=== PATIENT | female | born 1995 | race Caucasian/White ===

== ENCOUNTER 2021-08-24 08:53 | Emergency (ER) | payer MEDICAID, SELFPAY ==
[2021-08-24 09:44] VITALS: O2SAT 95
--- NOTE | 2021-08-24 09:58 | W.ED.COVID ---
HPI - COVID General: Chief Complaint: COVID symptoms Stated Complaint: PSEUDOSEIZURES/ COVID + Time Seen by Provider: 08/24/21 09:34 History of Present Illness: HPI Narrative: Patient presents today as a COVID-positive patient tested positive yesterday and has anxiety over diagnosis. Patient arrived via ambulance patient says she was not giving medication for her COVID and she felt faint today as she was thinking about her COVID diagnosis and caregiver thought she might of had a pseudoseizure. Patient has history of pseudoseizures. Patient has no complaints except generalized fatigue and muscle aches and a possible fever. complaint: known COVID positive Prior testing date: 08/23/21 COVID 19 common symptoms: positive fever(s), body aches and nausea; negative non-productive cough, productive cough, dyspnea, headache(s), throat pain or nasal congestion COVID 19 other sytmptoms: negative chest pain or confusion Onset (ago): day(s) (1) Severity: mild Treatment prior to arrival: other (IV) COVID Results: No Data to Display Review of Systems Const: Reports: fever(s) and body aches Eyes: Denies: change in vision or blurry vision ENMT: Denies: throat pain or nasal congestion Card: Denies: chest pain or dyspnea on exertion Resp: Denies: dyspnea, productive cough or non-productive cough GI: Reports: nausea Musc: Denies: extremity pain Skin/Breast: Denies: rash Neuro: Reports: other (Patient history of pseudoseizures did not have seizure activity today); Denies: headache(s), weakness in extremities, lack of coordination, difficulty walking, confusion or behavioral changes Psych: Denies: anxiety or depression Chris/Lymph: Denies: easy bruising PFS ED PFSH: Medical History Depression History of reactive attachment disorder Hx of febrile seizure Mild intellectual disability Family History Other CAD (coronary artery disease) Chronic kidney disease (CKD) Diabetes Seizure Social History Smoking and tobacco status: former smoker Alcohol intake: never Physical Exam Narrative: EXAM NARRATIVE: Patient said she had anxiety attack and did not have seizure activity and she remembers all events. Const: COMMON NORMALS: no acute distress, average body habitus, patient oriented x3 and alert (Patient did not appear in any postictal state. Patient not have any seizur) HENMT: COMMON NORMALS: normocephalic HEAD & SCALP: normal to inspection and normocephalic FACE & SINUS: normal facial exam Eye: COMMON NORMALS: conjunctivae normal GENERAL EYE: appearance normal, both eyes and all related structures CONJUNCTIVA: Yes conjunctivae normal Neck/C-Spine: COMMON NORMALS: no JVD Chest: COMMONS NORMALS: normal inspection of the chest Resp: COMMON NORMALS: normal respiratory effort and clear to auscultation bilaterally AUSCULTATION: clear to auscultation bilaterally Cardio: COMMON NORMALS: no JVD, regular rate and regular rhythm RATE: regular rate RHYTHM: regular rhythm GI: COMMON NORMALS: Normal to inspection, nondistended, normoactive bowel sounds present Extremity: COMMON NORMALS: normal to inspection and full ROM Neuro: COMMON NORMALS: patient oriented x3, CN's II-XII intact bilaterally and moves all extremities SENSORIUM/ORIENTATION: Yes alert (Patient did not appear in any postictal state. Patient not have any seizur) Course Vital Signs: Vital signs: Vital Signs Pulse Oximetry 95 08/24/21 09:44 MDM - COVID COVID Results: No Data to Display Discharge Plan Discharge Patient Disposition: Home Clinical Impression: COVID-19, Anxiety about health Condition: Stable Prescriptions: New hydroxyzine HCl 25 mg tablet 25 mg PO TID PRN (Reason: anxiety) Qty: 7 RF: 0 No Action famotidine [Pepcid AC] 20 mg tablet 20 mg PO DAILY RF: 0 dental [id number] 0.12 % kit miscellaneous RF: 0 medroxyprogesterone 150 mg/mL suspension IM [id number] RF: 0 acetaminophen [Tylenol] 325 mg tablet 650 mg PO QID PRNRF: 0 bismuth subsalicylate [Bismatrol] 262 mg/15 mL suspension 1,048 mg PO Q30M PRNRF: 0 ibuprofen 600 mg tablet 600 mg PO TID PRNRF: 0 magnesium hydroxide [Milk of Magnesia] 400 mg/5 mL suspension 5 ml PO DAILY PRNRF: 0 ibuprofen 200 mg tablet 200 mg PO Q6H PRNRF: 0 ondansetron HCl [Zofran] 4 mg tablet 4 mg PO Q8H RF: 0 Discharge Orders: Discharge ED (Routine); Ordered 08/24/21 Ordered By: Simone Snowden Discharge Diet: Usual diet Discharge Activity: Resume usual activity Patient Instructions: COVID-19: Slow the Coronavirus Spread (ED) Activity Restrictions/Additional Instructions: Follow-up with medical provider as directed. Take medications as prescribed. Return to the ER or your medical provider if condition worsens. Please read and understand discharge instructions. If any questions ask please. Coding Level of Care Code ED Towel Distributor for Shelly Aldana
[2021-08-24 10:48] VITALS: BP 129/84; PULSE 87; RESP 16
== END 2021-08-24 10:59 | disposition home or self-care (01) ==
PROVIDERS: Emergency Provider Nurse Practitioner Family
DX: U07.1 COVID-19 (principal); F41.9 Anxiety disorder, unspecified; F70 Mild intellectual disabilities; Z87.891 Personal history of nicotine dependence
CPT/HCPCS: 96374; 99283; J2930

== ENCOUNTER 2021-09-25 12:26 | Emergency (ER) | payer MEDICAID, SELFPAY ==
[2021-09-25 12:33] VITALS: BP 129/89; PULSE 112; RESP 16; TEMP 36.7; O2SAT 99; BMI 29.2
--- NOTE | 2021-09-25 12:53 | ED_ITS ---
HPI - Abdominal Pain General: Chief Complaint: Abdominal Pain Stated Complaint: n/v, abdomen pain Time Seen by Provider: 09/25/21 12:42 Source: patient and other (caregiver) Limitations: no limitations History of Present Illness: Patient reports that she is intermittent upper abdominal pain for the past year. Caregiver states patient has had pain worsening over the last few months and increased yesterday and today. Patient has had no previous work-up. Patient did have some mild clear emesis today. No blood in the emesis. Denies any diarrhea constipation melena hematochezia hematuria or dysuria. She states pain is in the left upper quadrant epigastric and left upper quadrant. Denies any flank pain. Possible history includes anxiety, major depression, remote febrile seizures, mental disability in which he stays a support home for. Her caregivers are from support home. Her last menstrual period was September 09 of this month. Medications include Wellbutrin Tylenol as needed, Pamprin as needed, Pepcid, Depo-Provera injection. Patient complained of mild right upper quadrant left upper quadrant and epigastric pain now. She denies any lower abdominal pain. Pertinent past history: other (Chronic abdominal pain for the past year) Onset (ago): year(s) (1) Pain Consistency: intermittent Location: Epigastric, LUQ and RUQ Severity: mild Quality: cramping and aching Radiation: none Migration to: no migration Exacerbating factors: nothing Relieving factors: nothing Context: history of similar episodes Associated Symptoms: Reports GI cramping, dyspepsia, nausea and vomiting; Denies change in stool character, chills, coffee ground emesis, constipation, diarrhea, dysuria, fever(s), heartburn, hematochezia, hematuria, hematemesis, loose stools, melena, poor appetite and syncope Related Data: Date of Last Menstrual Period: 09/09/21 Review of Systems Const: Denies: fever(s) or chills Eyes: Denies: change in vision ENMT: Denies: throat pain Card: Denies: syncope Resp: Denies: dyspnea or wheezing GI: Reports: nausea, vomiting and GI cramping; Denies: hematemesis, coffee ground emesis, dysphagia, heartburn, diarrhea, constipation, change in stool character, hematochezia or melena : Denies: dysuria or hematuria Musc: Denies: neck pain or back pain Skin/Breast: Denies: rash or pruritus Neuro: Denies: headache(s) or numbness in extremities Psych: Denies: anxiety Chris/Lymph: Denies: enlarged lymph nodes PFSH ED PFSH: Medical History Depression History of reactive attachment disorder Hx of febrile seizure Mild intellectual disability Family History Other CAD (coronary artery disease) Chronic kidney disease (CKD) Diabetes Seizure Social History Smoking and tobacco status: former smoker Alcohol intake: never Female Reproductive History: Date of last menstrual period: 09/09/21 control method: progesterone injection Physical Exam Const: COMMON NORMALS: no acute distress, patient oriented x3, no limitations and well nourished GENERAL APPEARANCE: cooperative HENMT: COMMON NORMALS: normocephalic and atraumatic HEAD & SCALP: normocephalic and atraumatic FACE & SINUS: normal facial exam Eye: COMMON NORMALS: EOMs intact bilaterally Neck/C-Spine: COMMON NORMALS: full ROM, no lymphadenopathy, supple and no meningeal signs GENERAL: Yes normal visual inspection Lymph: LYMPHATIC: no lymphadenopathy noted Chest: COMMONS NORMALS: normal inspection of the chest and normal palpation of entire chest wall CHEST: No Ecchymosis present and No rash Resp: COMMON NORMALS: normal respiratory effort, No retractions and clear to auscultation bilaterally EFFORT & INSPECTION: No respiratory distress AUSCULTATION: clear to auscultation bilaterally Cardio: COMMON NORMALS: regular rhythm and Peripheral pulses 2+ throughout JUGULAR VENOUS DISTENTION: no JVD RATE: tachycardic and Other (Mild tachycardia) RHYTHM: regular rhythm PERIPHERAL PULSES: Peripheral pulses 2+ throughout GI: COMMON NORMALS: Normal to inspection, nondistended, normoactive bowel so unds present (Mild epigastric abd pain with palpation. No ruq or luq abd pain now.), Soft to palpation and no bruits PALPATION: Yes Soft to palpation : COMMON NORMALS: Yes no CVA tenderness and Yes normal external appearance BLADDER/KIDNEY EXAM: Yes no CVA tenderness Back/Pelvis: COMMON NORMALS: no CVA tenderness and thoracic and lumbar spine normal to inspection Extremity: COMMON NORMALS: normal to inspection, full ROM and capillary refill normal Neuro: COMMON NORMALS: patient oriented x3, CN's II-XII intact bilaterally, no focal motor deficits and no sensory deficits noted MENINGEAL SIGNS: Yes no meningeal signs Psych: COMMON NORMALS: mental status grossly normal and Normal thought process present THOUGHT PROCESS: Normal thought process present Skin: COMMON NORMALS: no rashes or lesions noted and no wounds GENERAL SKIN EXAM: no rashes or lesions noted Course Vital Signs: Vital signs: Vital Signs Temperature 98.0 F 09/25/21 12:33 Pulse Rate 102 H 09/25/21 14:16 Respiratory Rate 18 09/25/21 14:16 Blood Pressure 114/76 09/25/21 14:16 Pulse Oximetry 100 09/25/21 14:16 MDM - Abdominal Pain Medical Decision Making Differential diagnoses : abdominal pain, right upper quad abdominal pain, biliary colic, peptic ulcer disease Lab Data I reviewed the patient's lab results. : 09/25/21 12:38 09/25/21 12:38 Labs/Radiology: Radiology Impressions Abdomen/Pelvis CT 09/25/21 13:53 IMPRESSION: 1. Colonic constipation is present. 2. Multiple bilateral renal cysts with benign features the larger of which measures 4.5 cm in the AP dimension in the mid pole of the right kidney. Follow-up is not necessary for this lesion. COMMENTS: Consistent with the [employer]'s Incidental Findings Committee white paper (J Am Makenna Radiol 2018): Any incidental renal lesion less than 1 cm or classified as too small to characterize, or any incidental cystic renal lesion characterized as simple-appearing, is likely benign. No follow-up imaging is recommended for these lesions per consensus recommendations based on imaging criteria. Laboratory Results WBC 8.6 10^3/uL (4.0-10.0) 09/25/21 12:38 RBC 4.80 10^6/uL (4.1-5.3) 09/25/21 12:38 Hgb 14.3 g/dL (11.5-15.3) 09/25/21 12:38 Hct 44.2 % (37.0-47.0) 09/25/21 12:38 MCV 92.1 fl (81-99) 09/25/21 12:38 MCH 29.8 pg (28.0-34.0) 09/25/21 12:38 MCHC 32.4 g/dL (30.0-36.0) 09/25/21 12:38 RDW 12.9 % (12.1-15.1) 09/25/21 12:38 Plt Count 259 10^3/cmm (130-400) 09/25/21 12:38 MPV 10.3 fL (7.4-10.4) 09/25/21 12:38 Neut % (Auto) 61.4 % 09/25/21 12:38 Lymph % (Auto) 30.1 % 09/25/21 12:38 [place]morton % (Auto) 7.0 % 09/25/21 12:38 Eos % (Auto) 0.9 % 09/25/21 12:38 Baso % (Auto) 0.3 % 09/25/21 12:38 Neut # (Auto) 5.29 10^3/uL (1.8-7.7) 09/25/21 12:38 Lymph # (Auto) 2.6 10^3/uL (0.8-4.8) 09/25/21 12:38 [place]morton # (Auto) 0.6 10^3/uL (0.2-0.9) 09/25/21 12:38 Eos # (Auto) 0.1 10^3/uL (0.0-0.8) 09/25/21 12:38 Baso # (Auto) 0.0 10^3/uL (0.0-0.1) 09/25/21 12:38 Nucleated RBC % (auto) 0 % 09/25/21 12:38 Nucleated RBCs # 0.0 /100WBC 09/25/21 12:38 Sodium 141 mmol/L (136-145) 09/25/21 12:38 Potassium 3.4 mmol/L (3.5-5.1) L 09/25/21 12:38 Chloride 107 mmol/L (98-107) 09/25/21 12:38 Carbon Dioxide 22 mmol/L (22-29) 09/25/21 12:38 Anion Gap 15.4 (5-19) 09/25/21 12:38 BUN 8 mg/dL (6-20) 09/25/21 12:38 Creatinine 0.6 mg/dL (0.5-0.9) 09/25/21 12:38 GFR Calculation 120.8 mL/min (90-130) 09/25/21 12:38 Glucose 98 mg/dL (65-115) 09/25/21 12:38 Calculated Osmolality 290 mOsm/kg (285-295) 09/25/21 12:38 Calcium 9.5 mg/dL (8.5-10.5) 09/25/21 12:38 Total Bilirubin 0.6 mg/dL (0.15-1.2) 09/25/21 12:38 AST 33 U/L (0-32) H 09/25/21 12:38 ALT 30 U/L (0-33) 09/25/21 12:38 Alkaline Phosphatase 88 IU/L (35-105) 09/25/21 12:38 Total Protein 7.9 g/dL (6.6-8.7) 09/25/21 12:38 Albumin 4.4 g/dL (3.5-5.2) 09/25/21 12:38 Globulin 3.5 g/dL (1.3-4.6) 09/25/21 12:38 Lipase 32 U/L (13-60) 09/25/21 12:38 HCG, Qual Negative (Negative) 09/25/21 12:38 Urine Color Straw (Yellow) 09/25/21 12:40 Urine Appearance Clear (CLEAR) 09/25/21 12:40 Urine pH 7 (5-7) 09/25/21 12:40 Ur Specific Cook 1.005 (1.005-1.030) 09/25/21 12:40 Urine Protein Neg (Negative) 09/25/21 12:40 Urine Glucose (UA) Norm (Normal) 09/25/21 12:40 Urine Ketones Negative (Negative) 09/25/21 12:40 Urine Blood Neg (Negative) 09/25/21 12:40 Urine Nitrate Negative (Negative) 09/25/21 12:40 Urine Bilirubin Neg (Negative) 09/25/21 12:40 Urine Urobilinogen Norm mg/dL (Negative) 09/25/21 12:40 Ur Leukocyte Esterase Negative (Negative) 09/25/21 12:40 Urine RBC None /hpf (0-2) 09/25/21 12:40 Urine WBC None /hpf (0-5) 09/25/21 12:40 Ur Squamous Epith Cells Rare /hpf (0-5) 09/25/21 12:40 Amorphous Sediment Not Reportable 09/25/21 12:40 Urine Bacteria Trace /hpf (NONE) 09/25/21 12:[address] Abd/Pel: Radiologist's impression: Exam: CT Abdomen And Pelvis With Contrast Exam date and time: 09/25/2021 1:53 PM Age: 26 years old Clinical indication: Abdominal pain; Localized; Upper; Additional info: Upper abd pain for 1 year, neg preg test TECHNIQUE: Imaging protocol: Computed tomography of the abdomen and pelvis with contrast. Radiation optimization: All CT scans at this facility use at least one of these dose optimization techniques: automated exposure control; mA and/or kV adjustment per patient size (includes targeted exams where dose is matched to clinical indication); or iterative reconstruction. Contrast material: OMNIPAQUE 300; Contrast volume: 95 ml; Contrast route: INTRAVENOUS (IV);? COMPARISON: No relevant prior studies available. RADIATION DOSE METRICS: Total DLP (mGy-cm): 1504.39 FINDINGS: Liver: Normal. No mass. Gallbladder and bile ducts: Normal. No calcified stones. No ductal dilation. Pancreas: Normal. No ductal dilation. Spleen: Small incidental splenule. Adrenal glands: Normal. No mass. Kidneys and ureters: Multiple bilateral renal cysts with benign features the larger of which measures 4.5 cm in the AP dimension in the mid pole of the right kidney. Stomach and bowel: Colonic constipation is present. Appendix: No evidence of appendicitis. Intraperitoneal space: Unremarkable. No free air. No significant fluid collection. Vasculature: Unremarkable. No abdominal aortic aneurysm. Lymph nodes: Unremarkable. No enlarged lymph nodes. Urinary bladder: Unremarkable as visualized. Reproductive: Unremarkable as visualized. Bones/joints: Unremarkable. No acute fracture. Soft tissues: Unremarkable. CT/CT abdomen pelvis w con* [id number] IMPRESSION: 1. Colonic constipation is present. 2. Multiple bilateral renal cysts with benign features the larger of which measures 4.5 cm in the AP dimension in the mid pole of the right kidney. Follow-up is not necessary for this lesion. ? COMMENTS: Consistent with the [employer]'s Incidental Findings Committee white paper (J Am Makenna Radiol 2018): Any incidental renal lesion less than 1 cm or classified as too small to characterize, or any incidental cystic renal lesion characterized as simple-appearing, is likely benign. No follow-up imaging is recommended for these lesions per consensus recommendations based on imaging criteria. ? Dictated By: Zamzam Phelan MD Signed By: Zamzam Phelan MD Signed Date/Time: 09/25/21 5215 Discharge Plan Discharge Clinical Impression: Abdominal pain Qualifiers: Abdominal location: epigastric Qualified Code(s): R10.13 - Epigastric pain Nausea & vomiting Qualifiers: Vomiting type: unspecified Qualified Code(s): R11.2 - Nausea with vomiting, unspecified Condition: Stable Prescriptions: No Action famotidine [Pepcid AC] 20 mg tablet 20 mg PO DAILY 0RF dental [id number]-mw 0.12 % kit miscellaneous 0RF medroxyprogesterone 150 mg/mL suspension IM .[id number] 0RF acetaminophen [Tylenol] 325 mg tablet 650 mg PO QID PRN0RF bismuth subsalicylate [Bismatrol] 262 mg/15 mL suspension 1,048 mg PO Q30M PRN0RF Rx Instructions: do not exceed 8 doses in a 24 hour period ibuprofen 600 mg tablet 600 mg PO TID PRN0RF magnesium hydroxide [Milk of Magnesia] 400 mg/5 mL suspension 5 ml PO DAILY PRN0RF ibuprofen 200 mg tablet 200 mg PO Q6H PRN0RF ondansetron HCl [Zofran] 4 mg tablet 4 mg PO Q8H 0RF hydroxyzine HCl 25 mg tablet 25 mg PO TID PRN (Reason: anxiety) Qty: 7 0RF Patient Instructions: Abdominal Pain (ED) Coding Level of Care Code ED Congressional Assistant for Chg Fwd Exam Comprehensive
[2021-09-25] MEDS: pantoprazole 40 mg SDV IVP (12:58)
[2021-09-25] MEDS: sodium chloride 0.9% 1,000 ML 999 ML IV (12:58)
[2021-09-25] MEDS: ondansetron 2 mg/ML SDV 2 mL 4 MG IVP (12:58)
[2021-09-25 13:00] LABS: Basophils % 0.3 %; Eosinophils # 0.1 10^3/uL (0.0-0.8); Eosinophils % 0.9 %; Hematocrit 44.2 % (37.0-47.0); Hemoglobin 14.3 g/dL (11.5-15.3); Lymphocytes # 2.6 10^3/uL (0.8-4.8); Lymphocytes % 30.1 %; Mean Corpuscular HGB Conc 32.4 g/dL (30.0-36.0); Mean Corpuscular Hemoglobin 29.8 pg (28.0-34.0); Mean Corpuscular Volume 92.1 fl (81-99); Mean Platelet Volume 10.3 fL (7.4-10.4); Monocytes # 0.6 10^3/uL (0.2-0.9); Neutrophils # 5.29 10^3/uL (1.8-7.7); Neutrophils % 61.4 %; Nucleated Red Blood Cells % 0 %; Platelet Count 259 10^3/cmm (130-400); Red Cell Distribution Width 12.9 % (12.1-15.1); White Blood Count 8.6 10^3/uL (4.0-10.0)
[2021-09-25 13:05] LABS: HCG, Serum Qual Negative (Negative)
[2021-09-25 13:14] LABS: Urine Appearance Clear (CLEAR); Urine Color Straw (Yellow); pH Urine 7 (5-7)
[2021-09-25 13:14] LABS: Alanine Aminotransferase 30 U/L (0-33); Albumin Level 4.4 g/dL (3.5-5.2); Alkaline Phosphatase 88 IU/L (35-105); Anion Gap 15.4 (5-19); Aspartate Amino Transferase 33 U/L (0-32); Blood Urea Nitrogen 8 mg/dL (6-20); Calcium 9.5 mg/dL (8.5-10.5); Carbon Dioxide 22 mmol/L (22-29); Chloride 107 mmol/L (98-107); Creatinine Clr Calc Pharmacy 148.3395; Globulin 3.5 g/dL (1.3-4.6); Glomerular Filtration Rate 120.8 mL/min (90-130); Glucose 98 mg/dL (65-115); Lipase 32 U/L (13-60); Osmolality Calculated 290 mOsm/kg (285-295); Potassium 3.4 mmol/L (3.5-5.1); Sodium 141 mmol/L (136-145); Total Bilirubin 0.6 mg/dL (0.15-1.2); Total Protein 7.9 g/dL (6.6-8.7)
[2021-09-25 13:15] LABS: Add Urine Culture? No; Bacteria Urine TRACE /hpf; Bilirubin Urine Neg (Negative); Blood Urine Neg (Negative); Glucose Urine UA Norm (Normal); Ketones Urine Negative (Negative); Leukocyte Esterase Urine Negative (Negative); Nitrate Urine Negative (Negative); Protein Urine Neg (Negative); Specific Gravity, Urine 1.005 (1.005-1.030); Squamous Epithelial Cell Urine RARE /hpf (0-5); Urobilinogen Urine Norm (Negative)
--- NOTE | 2021-09-25 13:53 | CTR_ITS ---
PROCEDURE INFORMATION: Exam: CT Abdomen And Pelvis With Contrast Exam date and time: 09/25/2021 1:53 PM Age: 26 years old Clinical indication: Abdominal pain; Localized; Upper; Additional info: Upper abd pain for 1 year, neg preg test TECHNIQUE: Imaging protocol: Computed tomography of the abdomen and pelvis with contrast. Radiation optimization: All CT scans at this facility use at least one of these dose optimization techniques: automated exposure control; mA and/or kV adjustment per patient size (includes targeted exams where dose is matched to clinical indication); or iterative reconstruction. Contrast material: OMNIPAQUE 300; Contrast volume: 95 ml; Contrast route: INTRAVENOUS (IV); COMPARISON: No relevant prior studies available. RADIATION DOSE METRICS: Total DLP (mGy-cm): 1504.39 FINDINGS: Liver: Normal. No mass. Gallbladder and bile ducts: Normal. No calcified stones. No ductal dilation. Pancreas: Normal. No ductal dilation. Spleen: Small incidental splenule. Adrenal glands: Normal. No mass. Kidneys and ureters: Multiple bilateral renal cysts with benign features the larger of which measures 4.5 cm in the AP dimension in the mid pole of the right kidney. Stomach and bowel: Colonic constipation is present. Appendix: No evidence of appendicitis. Intraperitoneal space: Unremarkable. No free air. No significant fluid collection. Vasculature: Unremarkable. No abdominal aortic aneurysm. Lymph nodes: Unremarkable. No enlarged lymph nodes. Urinary bladder: Unremarkable as visualized. Reproductive: Unremarkable as visualized. Bones/joints: Unremarkable. No acute fracture. Soft tissues: Unremarkable. CT/CT abdomen pelvis w con* [id number] IMPRESSION: 1. Colonic constipation is present. 2. Multiple bilateral renal cysts with benign features the larger of which measures 4.5 cm in the AP dimension in the mid pole of the right kidney. Follow-up is not necessary for this lesion. COMMENTS: Consistent with the [employer]'s Incidental Findings Committee white paper (J Am Makenna Radiol 2018): Any incidental renal lesion less than 1 cm or classified as too small to characterize, or any incidental cystic renal lesion characterized as simple-appearing, is likely benign. No follow-up imaging is recommended for these lesions per consensus recommendations based on imaging criteria.
[2021-09-25] MEDS: iohexol 300 mg/mL 100 mL Btl IV (14:06)
[2021-09-25 14:16] VITALS: BP 114/76; PULSE 102; RESP 18; O2SAT 100
[2021-09-25] MEDS: acetaminophen 325 mg Tablet 650 MG PO (14:30)
[2021-09-25 14:32] VITALS: BP 114/76; PULSE 93; RESP 16; O2SAT 100
== END 2021-09-25 14:37 | disposition home or self-care (01) ==
PROVIDERS: Emergency Provider Family Medicine; PCP Internal Medicine
DX: R10.13 Epigastric pain (principal); R11.2 Nausea with vomiting, unspecified; Z87.891 Personal history of nicotine dependence
CPT/HCPCS: 74177; 80053; 81001; 83690; 84703; 85025; 96361; 96374; 96375; 99283; 99284; C9113; J2405; J7030; Q9967

== ENCOUNTER → 2024-07-09 08:50 | Outpatient (BNVA) | payer MEDICAID, SELFPAY | PROVIDERS: PCP Internal Medicine; Referring Provider Internal Medicine; Visit Provider Psychiatry & Neurology Neurology | DX: R56.9 Unspecified convulsions (principal); F32.A Depression, unspecified | CPT/HCPCS: 36415; 82306; 82607; 82746; 83090; 83735; 83921; 99203 ==

== ENCOUNTER 2024-07-14 09:18 | Outpatient (CLI) | payer MEDICAID, SELFPAY ==
[2024-07-14] MEDS: gadobenate dimeglumine 20 mL vial IV (09:54)
--- NOTE | 2024-07-14 10:15 | MR_ITS ---
WS: [id number] MRI HEAD WITH CONTRAST TECHNIQUE: Sagittal T1, T2 axial, T2 axial FLAIR, axial susceptibility weighted imaging, axial diffus ion weighted images, and coronal T2 images were obtained. Pre and post-T1 axial and post T1 coronal i mages. ADC and FSPGR images. CLINICAL INFORMATION: R56.9 - Unspecified convulsions COMPARISON: None. FINDINGS: No evidence of restricted diffusion to suggest acute ischemia. Ventricular system and basal cisterns are patent. No suspicious intracranial signal abnormalities. Normal petit-white differentiation. Normal posterior fossa. Normal vascular flow voids at the skull base. No extra-axial fluid collection s. No evidence of mass or mass effect. Small retention cyst RIGHT sphenoid sinus. Mastoid air cells a re well aerated. No hemosiderin on the susceptibly weighted images. Normal optic chiasm and pituitary infundibulum. Te mporal lobes hippocampal formations are normal in appearance. No evidence of mesial temporal sclerosi s. No abnormal gadolinium enhancement. No other acute findings. MR/MR head wo/w con [id number] IMPRESSION: 1. No evidence of restricted diffusion to suggest acute ischemia. 2. No suspicious intracranial signal abnormalities. 3. No abnormal gadolinium enhancement. 4. Temporal lobes and hippocampal formations are normal in appearance. 5. No abnormal gadolinium enhancement.
== END 2024-07-14 09:19 | disposition home or self-care (01) ==
PROVIDERS: PCP Internal Medicine; Visit Provider Psychiatry & Neurology Neurology
DX: R56.9 Unspecified convulsions (principal)
CPT/HCPCS: 70553

== ENCOUNTER → 2024-08-19 07:18 | Outpatient (BNVA) | payer MEDICAID, SELFPAY | PROVIDERS: PCP Internal Medicine; Referring Provider Psychiatry & Neurology Neurology; Visit Provider Psychiatry & Neurology Neurology | DX: R56.9 Unspecified convulsions (principal) | CPT/HCPCS: 95813 ==

== ENCOUNTER 2024-11-11 12:00 | Outpatient (CLI) | payer MEDICAID, SELFPAY | END 2024-11-11 12:01 | disposition home or self-care (01) | LOC: SLEEP 11-12 07:34 | PROVIDERS: PCP Internal Medicine; Visit Provider Internal Medicine | DX: G47.10 Hypersomnia, unspecified (principal) | CPT/HCPCS: G0399 ==

== ENCOUNTER → 2024-11-26 12:32 | Outpatient (BNVA) | payer MEDICAID, SELFPAY | PROVIDERS: PCP Internal Medicine; Visit Provider Psychiatry & Neurology Neurology | DX: G40.909 Epilepsy, unspecified, not intractable, without status epilepticus (principal) | CPT/HCPCS: 99212 ==

== ENCOUNTER 2025-04-08 10:47 | Outpatient (CLI) | payer MEDICAID, SELFPAY ==
--- NOTE | 2025-04-08 10:55 | US_ITS ---
WS: [id number] RENAL ULTRASOUND HISTORY: FAMILY HX OF POLYCYSTIC KIDNEY COMPARISON: CT 09/25/2021 TECHNIQUE: 2-D and color Doppler imaging of the kidney submitted. Right kidney: 10.3 cm x 5.8 cm x 6.0 cm. Cortex: 1.5 cm Multiple cysts are noted within the RIGHT kidney. The largest is in the mid kidney measuring 6.0 x 5.2 x 5.6 cm. This cyst contains a few small septations. No shadowing or solid component. No increased vascularity. There are numerous additional smaller cortical cysts. Left kidney: 9.2 cm x 5.5 cm x 5.2 cm. Cortex: 1.2 cm Normal size kidney with scattered cysts. The largest cyst in the mid kidney measures 2.6 x 2.1 x 2.5 cm. Aorta: Normal. Urinary Bladder: Minimally distended. US/US renal BI* [id number] IMPRESSION: 1. Normal size kidneys with numerous bilateral cysts. 2. The largest cyst is in the RIGHT kidney and contains a thin septation. This complex cyst measures 6.0 x 5.2 x 5.6 cm. Cyst was previously identified on a prior CT from 09/25/2021 with slight increase in size.
== END 2025-04-08 10:48 | disposition home or self-care (01) ==
LOC: RAD 10:48
PROVIDERS: PCP Internal Medicine; Visit Provider Internal Medicine
DX: N28.1 Cyst of kidney, acquired (principal); Z82.71 Family history of polycystic kidney
CPT/HCPCS: 76770